=== PATIENT | male | born 1955 | race Caucasian/White ===

== ENCOUNTER → 2017-03-31 | Outpatient (CLI) | payer MEDICARE ==
[~2017-03-31] MED LIST: AMLODIPINE BESYL5 MG PO; CALCIUM 600 +1 EAC1 PO; LASIX20 MG PO; LIPITOR20 MG PO; LO-DOSE ASPIRIN81 M1 PO; MULTI-DAY VITA1 EACH PO; NEURONTIN300 MG PO; NORVASC PO; POTASSIUM CHLO10 MEQ PO; VITAMIN D1000 UNI2 PO; VYTORIN 10/20 T1 TAB PO
--- NOTE | ~2017-03-31 | CT55 ---
[facility] A Service of [facility] RADIOLOGY TEXT RESULTS PATIENT: NIKUNJ COULTER LOCATION: [facility] : 51 UNIT #: [id number] AGE: [address]: Jignesh Ortiz MD SEX: M ORDER DR: [id number] [facility] [address] [place], [place] [address] [id number] O MR#: [id number] [facility] #: [id number] NAME: NIKUNJ COULTER : 1955 SEX: M STUDY DATE/TIME: 03/31/2017 14:05 UNIT: [facility] ROOM: STUDY DESCRIPTION: CT Chest W Con Attending Physician: Jignesh Ortiz Jr., M.D. Referring Physician: Jignesh Ortiz Jr., M.D. Ordering Physician: Jignesh Ortiz Jr., M.D. Primary Care Physician: Jignesh Ortiz Jr., M.D. MEDICAL IMAGING REPORT This report is preliminary unless electronic signature is present EXAM CT head with contrast DATE: 03/31/2017 HISTORY 61-year-old male with complaints of recurrent cough since November 2016. Patient states part of jaw has been removed. History of basal carcinoma of the mouth in 2014. COMPARISON There is no prior CT chest at this institution for comparison. Correlation is made to PA and lateral chest radiograph 02/25/2017. PROCEDURE 5 mm axial images through the chest after intravenous contrast administration. Sagittal and coronal reformatted images were obtained. This CT exam was performed with one or more of the following radiation dose reduction techniques: automatic exposure control, adjustment of mA and/or kV according to patient size, and iterative reconstruction. FINDINGS No acute airspace disease. No suspicious pulmonary nodules. No abnormal bronchial wall thickening or bronchiectasis. No obstructing endobronchial lesion is identified. Low-density nodule in the left thyroid lobe measures 1 cm. No pathologically enlarged mediastinal, hilar, axillary or supraclavicular lymph nodes are seen. Coronary artery calcifications are present, greatest in the proximal LAD. Small esophageal hiatal hernia. Liver appears mildly and diffusely steatotic. A round 1.1 cm focus of increased density is seen in the posterior right hepatic lobe which is nonspecific STS. [facility] A Service of [facility] RADIOLOGY TEXT RESULTS PATIENT: NIKUNJ COULTER LOCATION: [facility] : 51 UNIT #: [id number] AGE: [address]: Jignesh Ortiz MD SEX: M ORDER DR: and could represent an underlying liver lesion or potentially simply an area of benign fatty sparing. It is not visualized on the previous CT abdomen from 10/20/2007 which was performed with IV contrast. Remainder of included upper abdominal organs are normal. No acute osseous abnormalities are identified. IMPRESSION 1. No acute chest findings. Clear lungs. 2. A 1.1 cm hyperdense focus in the right hepatic lobe. It is not seen on the 2007 CT abdomen. I suspect it may represent a benign etiology such as focal fatty sparing on a background a background of hepatic steatosis. However, further evaluation with CT or MR abdomen without or with contrast hepatic imaging protocol would be recommended for verification. 3. A 1 cm left thyroid nodule. Consideration correlation with thyroid ultrasound. 4. Small esophageal hiatal hernia. 5. Coronary artery calcifications. Please correlate with cardiac history. Dictated by... Abbie Vargas M.D. THIS IS AN ELECTRONICALLY VERIFIED REPORT Abbie Vargas M.D. at 04/01/2017 8:43 AM TYRONE/carolynn TD: 03/31/2017 21:11 JOB #: [id number] MEDICAL IMAGING REPORT Page 1 of 1 COPY
[2017-03-31 14:06] LABS: POC - CREATININE 0.78 mg/dL (0.64-1.27); POC - GFR >60.0 mL/min (>60)
== END | disposition home or self-care (01) ==
LOC: CECH 13:11
PROVIDERS: Family Medicine
DX: I51.7 Cardiomegaly (principal); J18.9 Pneumonia, unspecified organism; E04.1 Nontoxic single thyroid nodule; K44.9 Diaphragmatic hernia without obstruction or gangrene; I25.10 Atherosclerotic heart disease of native coronary artery without angina pectoris; I36.1 Nonrheumatic tricuspid (valve) insufficiency; Z86.11 Personal history of tuberculosis
CPT/HCPCS: 71260; 82565; 93306; Q9967

== ENCOUNTER → 2017-04-28 | Outpatient (CLI) | payer MEDICARE ==
--- NOTE | ~2017-04-28 | US128 ---
[id number] [address] [address] [id number] O MR#: [id number] Acc #: [id number] NAME: NIKNUJ COULTER : 1955 SEX: M STUDY DATE/TIME: 04/28/2017 9:35 UNIT: [facility] ROOM: STUDY DESCRIPTION: Thyroid Attending Physician: Jignesh Ortiz Jr., M.D. Referring Physician: Jignesh Ortiz Jr., M.D. Ordering Physician: Jignesh Ortiz Jr., M.D. Primary Care Physician: Jignesh Ortiz Jr., M.D. MEDICAL IMAGING REPORT This report is preliminary unless electronic signature is present. EXAM Ultrasound thyroid, 04/28/2017. CLINICAL HISTORY Thyroid nodule identified incidentally on chest CT. COMPARISON Chest CT, 03/31/2017. FINDINGS Cystic appearing hypoechoic lesion at the lower pole of the left lobe of the gland measuring 11 mm x 11 mm x 11 mm corresponds to a lesion seen on CT. No additional nodules are seen. IMPRESSION 11 mm left lower pole cystic appearing lesion corresponds to a lesion seen on CT. Unless there is a personal or family history suggesting an increased risk of thyroid malignancy, the lesion has a benign appearance and in particular in a patient of this age, there is no sonographic indication for tissue sampling at this time. Dictated by... Dante Sanders M.D. THIS IS AN ELECTRONICALLY VERIFIED REPORT Dante Sanders M.D. at 04/30/2017 2:09 PM JAYLA/leilani TD: 04/29/2017 00:55 JOB #: [id number] MEDICAL IMAGING REPORT Page 1 of 1
== END | disposition home or self-care (01) ==
LOC: SGUS 09:26
DX: E04.1 Nontoxic single thyroid nodule (principal)
CPT/HCPCS: 76536